=== PATIENT | female | born 1980 | race Caucasian/White ===

== ENCOUNTER 2017-03-23 14:45 | Emergency (ER) | payer BC ==
[~2017-03-23 14:45] MED LIST: PEPCID AC20 M2 PO; ZOFRAN ODT4 MG/UDTAB PO
[2017-03-23] MEDS ORDERED: NO MEDICATIONS (14:48)
== END 2017-03-23 15:50 | disposition home or self-care (01) ==
LOC: SED 14:45
DX: J06.9 Acute upper respiratory infection, unspecified (principal); F17.200 Nicotine dependence, unspecified, uncomplicated; J45.909 Unspecified asthma, uncomplicated; Z88.2 Allergy status to sulfonamides
CPT/HCPCS: 87651; 99283